=== PATIENT | female | born 1940 | race Caucasian/White ===

== ENCOUNTER 2019-11-01 15:03 | Emergency (ER) | payer OTHER ==
[2019-11-01 15:11] VITALS: BP 94/53; PULSE 53; TEMP 98; BMI 22.8
--- NOTE | 2019-11-01 15:30 | PDOC ---
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 Patient was getting LFTs when she had an episode of unresponsiveness and diaphoresis, was unconscious for 3 seconds before returning to baseline. Denies tongue biting, urinary/fecal incontinence, prodromal symptoms, no seizure history. Has known history of orthostatic hypotension, had a similar episode this morning, and has multiple other episodes in the last few weeks. At this time feels well and is asymptomatic. Area Supervisor Dr. Harrison aware, called ED to confirm history and would like discharge and follow-up in his office for medication tailoring. Electrical Appliance Repairer Dr. Austin present in ED, corroborated patient history and recall of episode in PFT lab. Patient denies chest pain, SOB, palpitations, abd pain, urinary sx, N/V/C/D. NIH Stroke Scale - Last Known Well Date/Time & Onset Date Last Known Well: 11/01/19 Time Last Known Well: 15:00 - Initial Evaluation Level of consciousness: Alert Ask patient the month and their age: Answers both correctly Ask patient to open & close eyes; make fist and let go: Obeys both correctly Best gaze (horizontal eye movement): Normal Visual field testing: No visual field loss Facial paresis (Show teeth/raise eyebrows/close eyes tight): Minor paralysis ( flattened nasolabial fold, asymmetry on smiling) (L-sided deficit limted to L mouth, but at bedside confirms this is consistent with her baseline Yanes 's palsy deficit) Motor Function: Left Arm: Normal Motor Function: Right Arm: Normal (extends arm 90 (or 45) degrees for 10 seconds without drift Motor Function: Left Leg: Normal (extends leg 30 degrees for 5 seconds without drift) Motor Function: Right Leg: Normal (extends leg 30 degrees for 5 seconds without drift) Limb Ataxia: No ataxia Sensory(Use pinprick test arms,legs,trunk,face/side to side): Normal Best language (Describe picture, name items, read sentences): No Aphasia Dysarthria (read several words): Normal articulation Extinction and Inattention: No abnormality - Total Score NIH Stroke Scale Score: 1 Past History - Past Medical History Allergies/Adverse Reactions: Allergies Allergy/AdvReac Type Severity Reaction Status Date / Time iodine Allergy Verified 11/01/19 15:11 shellfish derived Allergy Verified 11/01/19 15:11 Home Medications: Ambulatory Orders Amlodipine Besylate [Norvasc -] 5 mg PO DAILY 12/01/15 Levothyroxine [Synthroid -] 125 mcg PO DAILY 12/01/15 Losartan/Hydrochlorothiazide [Hyzaar 100-25 Tablet] 1 each PO DAILY 12/01/15 Oxycodone HCl/Acetaminophen [Percocet 5/325 -] 1 - 2 tab PO Q6H PRN #20 tab 03/13 levoFLOXacin [Levaquin -] 500 mg PO DAILY #7 tablet 12/01/15 Anemia: Yes Asthma: Yes Cardiac Disorders: Yes (AFIB) COPD: No HTN: Yes Seizures: Yes Thyroid Disease: Yes (HYPO) - Surgical History Appendectomy: Yes - Psycho Social/Smoking Cessation Hx Smoking History: Never smoked Have you smoked in the past 12 months: No Hx Alcohol Use: No Drug/Substance Use Hx: No Substance Use Type: None Review of Systems - Review of Systems Able to Perform ROS?: Yes Constitutional: Yes: Diaphoresis. No: Chills, Fever HEENTM: No: Symptoms Reported Respiratory: No: Cough, Orthopnea, Shortness of Breath, SOB with Exertion Cardiac (ROS): Yes: Lightheadedness, Syncope. No: Chest Pain, Palpitations ABD/GI: No: Symptoms Reported : No: Symptoms Reported Musculoskeletal: No: Symptoms Reported Integumentary: No: Symptoms Reported Neurological: No: Headache, Numbness, Paresthesia, Seizure, Weakness, Unsteady Gait, Ataxia Endocrine: No: Symptoms Reported Hematologic/Lymphatic: No: Symptoms Reported All Other Systems: Reviewed and Negative *Physical Exam - Vital Signs Last Vital Signs Temp Pulse Resp BP Pulse Ox 98 F 53 L 18 94/53 L 100 11/01/19 15:08 11/01/19 15:08 11/01/19 15:08 11/01/19 15:08 11/01/19 15:08 - Physical Exam General Appearance: Yes: Nourished, Appropriately Dressed, Thin. No: Apparent Distress HEENT: positive: EOMI, CHANG, Normal ENT Inspection, Normal Voice, Pharynx Normal , Hearing Grossly Normal. negative: Symmetrical, Scleral Icterus (R), Scleral Icterus (L), Pharyngeal Erythema, Tonsillar Exudate, Tonsillar Erythema, Nasal Congestion Neck: positive: Normal Thyroid. negative: Tender, Lymphadenopathy (R), Lymphadenopathy (L) Respiratory/Chest: positive: Lungs Clear, Normal Breath Sounds, Respiratory Distress. negative: Chest Tender, Accessory Muscle Use, Crackles, Rales, Rhonchi, Stridor, Wheezing Cardiovascular: positive: Regular Rhythm, Regular Rate. negative: Edema, Murmur Gastrointestinal/Abdominal: positive: Normal Bowel Sounds, Flat, Soft. negative : Tender, Guarding, Rebound Musculoskeletal: positive: Normal Inspection. negative: CVA Tenderness Extremity: positive: Normal Capillary Refill, Normal Inspection, Normal Range of Motion Integumentary: positive: Normal Color, Dry, Warm Neurologic: positive: Fully Oriented, Alert, Normal Mood/Affect, Normal Response , Motor Strength 5/5, Other (sensation intact to LT to all extremities, motor 5/ 5 all groups). 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 At this time patient appears well and is a/o x4, VS stable but mildly hypotensive to 90/53. Has known history of pAF, orthostatic hypotension with presentation consistent with frequent prior episodes. Area Supervisor Dr. Harrison is expecting patient and recommends discharge home once ED evaluation complete. Dr. Austin agrees, recommends labs be drawn before discharge. Ddx includes vagal syncope, VA, PE, seizure, arrhythmia, TIA. Patient exam is benign, no new neurological deficits, has baseline L mouth paralysis but otherwise remaining facial muscles intact, no sensory deficits. Mosts likely had a vagal syncopal episode while engaging abdominal muscles during PFTs. CBC CMP CP ECG CXR BGM TSH ECG shows NSR with HR 81, QRS 86, QTc 432, no ischemic changes or TWI. However, patient refuses to stay for further evaluation after labs drawn, refuses IV fluids for hypotension or to wait for labs to return to diagnose electrolyte abnormalities and trops despite the recommendation of enterostomal nurse/ physician/ophthalmologist. Says she will immediately go home with who is also a physician to see Dr. Harrison at his office. Patient has high medical literacy as a physician, understands risks of leaving AMA from ED, including cardiac disease such as VA/PE, electrolyte abnormalities causing arrhythmia, anemia or volume loss, neurological disease such as seizure/ TIA, and loss of current lifestyle or . Will be going directly to linen attendant who knows patient well and who is expecting her in the office today. Is not altered or intoxicated, has capacity to make this decision. Alternatives discussed, but patient remains steadfast in decision to leave. Explained importance of labs and fluids to alleviate hypotension, that patient was not a safe discharge and would potentially syncopize again. Patient verbalizes understanding and still wishes to leave. Patient understands that her intent to leave does not mean that we are unwilling to provide the care she needs, and that she is welcome to return to the ED at any time should she wish to do so. Patient signed AMA paperwork and will be leaving ED. Discharge - Discharge Information Problems reviewed: Yes Clinical Impression/Diagnosis: Hypotension Qualifiers: Hypotension type: orthostatic hypotension Qualified Code(s): I95.1 - Orthostatic hypotension Syncope Qualifiers: Syncope type: unspecified Qualified Code(s): R55 - Syncope and collapse Condition: Stable Disposition: AGAINST MEDICAL ADVICE - Admission No - Follow up/Referral Referrals: Melody Kim MD [Primary Care Provider] - - Patient Discharge Instructions - Post Discharge Activity
[2019-11-01] MEDS ORDERED: SODIUM CHLORIDE 0.9% 500 ML INFUS.BAG IV ONE (16:10)
--- NOTE | 2019-11-01 16:46 | PDOC ---
Attending Attestation - Resident Resident Name: Smith Elena - ED Attending Attestation I have performed the following: I have examined & evaluated the patient, The case was reviewed & discussed with the resident, I agree w/resident's findings & plan, Exceptions are as noted - HPI HPI: 11/01/19 16:39 79-year-old female with a history of paroxysmal atrial fibrillation, orthostatic hypotension, and asthma presents to the emergency department after a syncopal episode. Patient was in the hospital getting pulmonary function tests done and after 1 of the tests, she began to feel very sweaty. While in bed the patient was noted to stare off and become unresponsive for a few seconds. The patient quickly returned to her baseline and was not confused. She had no shaking movements, incontinence, tongue biting. The patient's blood pressure was reportedly very low and she was brought down to the emergency department for evaluation. On arrival here to the emergency department her blood pressure was 90s over 50s and her heart rate was 50. The patient reports her baseline blood pressure to be in the 130 systolic. She reports multiple similar episodes in the past where she gets lightheaded and diaphoretic with standing, but has never fully lost consciousness like she did today. She denies any preceding palpitations, chest pain, shortness of breath. At this time she is asymptomatic and feels well. She has no recent fevers, chills, headaches, dizziness, focal weakness or numbness, abdominal pain, nausea, vomiting, diarrhea, urinary symptoms or lower extremity edema. She denies any calf pain. She denies recent travel. - Physicial Exam PE: 11/01/19 16:43 GENERAL: Awake, alert, and fully oriented, in no acute distress. Very pleasant HEAD: No signs of trauma EYES: PERRLA, EOMI, sclera anicteric, conjunctiva clear ENT: Oropharynx clear without exudates. Moist mucosa NECK: Normal ROM, supple, no lymphadenopathy, JVD, or masses LUNGS: Breath sounds equal, clear to auscultation bilaterally. No wheezes, and no crackles HEART: Regular rate and rhythm, normal S1 and S2, no murmurs, rubs or gallops ABDOMEN: Soft, nontender, normoactive bowel sounds. No guarding, no rebound. No masses EXTREMITIES: Normal range of motion, no edema. No clubbing or cyanosis. No cords, erythema, or tenderness NEUROLOGICAL: Normal speech, +L sided facial droop, negative pronator drift, 5/ 5 strength in all 4 extremities, normal sensation to light touch in all 4 extremities, normal cerebellar exam, normal gait, normal reflexes and tone SKIN: Warm, Dry, normal turgor, no rashes or lesions noted. - Medical Decision Making 11/01/19 16:47 79yo F hx pAF, orthostatic hypotension, bells palsy presents to the ED for evaluation after syncopal episode while getting PFTs Vitals remarkable for hypotension and bradycardia on arrival, with improvement of HR to 70s and BP to 100/74s on our evaluation Exam unremarkable, pt is clinically well appearing Patient is followed closely by her group leader semiconductor processing Dr. Harrison and her supervisory cbp officer Dr. Austin. Per Dr. Harrison, patient has frequent episodes of presyncope, similar to the one she had today. He requests that we discharge her to his office for evaluation at this time, as she is well known to him. The patient would also like to be discharged to see Dr. Harrison at this time. Patient's blood work remains pending. We would like to make sure the patient's electrolytes, kidney function, troponin, and blood counts are within normal limits prior to discharge, in order to make sure we have treated any reversible causes of her syncopal episode today. The patient does not want to wait for the blood work as Dr. Harrison is awaiting them in the office. As such, we will sign the patient out AGAINST MEDICAL ADVICE. The patient was also evaluated in the emergency department by Dr. Austin, who agreed we should have lab results prior to discharge. The patient is clinically sober, free from distracting injury, appears to have intact insight and judgment and reason and in my opinion has the capacity to make decisions. The patient presents with syncope. I have explained that I am concerned that this may represent a cardiac arrhythmia, dehydration, anemia, a heart attack, she has verbalized an understanding of my concerns. I have discussed the need for lab results and observation to get more information about potential causes of the patients syncope. I have told the patient that if they leave and have another episode of syncope, they could get much worse, could become critically ill, and could possibly become disabled or . I have discussed these concerns with the patients who is at the bedside and he is unable to convince them to stay for further evaluation. The patient is not willing to await lab results or undergo observation. She is unwilling to stay overnight for monitoring. She is refusing any further care and is leaving against medical advice. I am unable to convince the patient to stay, I have asked her to return as soon as possible to complete her evaluation. I have spoken with Dr. Austin/Hunter. Pt will proceed at this time to Dr. Harrison' s office. I have answered all their questions. Heart Score/ECG Review #1 11/01/19 17:02 Twelve-lead EKG was performed and reviewed by me. Normal sinus rhythm, rate 81. Normal axis and intervals. No ST elevations or T wave inversions.
[2019-11-01 17:04] LABS: BASO % 0.3 % (0-2.0); EOS % 0.3 % (0-4.5); HEMATOCRIT 31.7 % (32.4-45.2); HEMOGLOBIN 10.2 GM/dL (10.7-15.3); LYMPH % 9.9 % (8-40); MCHC 32.1 g/dl (32.0-36.0); MEAN CELL VOLUME 61.9 fl (80-96); MEAN PLT VOLUME 9.6 fl (7.5-11.1); MONO % 6.5 % (3.8-10.2); PLATELET COUNT 232 K/MM3 (134-434); RBC 5.12 M/mm3 (3.60-5.2); RDW 16.1 % (11.6-15.6); WHITE BLOOD COUNT 13.6 K/mm3 (4.0-10.0)
[2019-11-01 17:07] LABS: MCH 19.9 pg (25.7-33.7)
[2019-11-01 17:34] LABS: ALBUMIN 3.5 g/dl (3.4-5.0); BILIRUBIN,TOTAL 0.5 mg/dL (0.2-1); BLOOD UREA NITROGEN 22.1 mg/dL (7-18); CALCIUM 8.4 mg/dL (8.5-10.1); CREATININE 0.9 mg/dL (0.55-1.3); POTASSIUM 3.6 mmol/L (3.5-5.1); TOT PROT 6.9 g/dl (6.4-8.2)
[2019-11-01 17:58] LABS: ANISOCYTOSIS 1+; PLATELET ESTIMATE ADEQUATE; TARGET CELLS FEW
--- NOTE | 2019-11-02 11:44 | EKG ---
Test Reason : Blood Pressure : / mmHG Vent. Rate : 081 BPM Atrial Rate : 081 BPM P-R Int : 166 ms QRS Dur : 086 ms QT Int : 372 ms P-R-T Axes : 045 071 038 degrees QTc Int : 432 ms NORMAL SINUS RHYTHM NONSPECIFIC ST ABNORMALITY ABNORMAL ECG WHEN COMPARED WITH ECG OF 26-AUG-2014 14:25, NO SIGNIFICANT CHANGE WAS FOUND Confirmed by KHOI BOOTH MD ([id number]) on 11/02/2019 11:43:49 AM Referred By: Confirmed By:KHOI BOOTH MD
== END 2019-11-01 17:07 | disposition left against medical advice (07) ==
LOC: JER 15:03
DX: I95.1 Orthostatic hypotension (principal); G51.0 Bell's palsy; J45.909 Unspecified asthma, uncomplicated; Z91.013 Allergy to seafood; Z91.048 Other nonmedicinal substance allergy status
CPT/HCPCS: 36415; 80053; 82550; 84443; 84484; 85025; 93005; 93010; 99282-25

== ENCOUNTER 2022-01-05 04:43 | Day surgery (SDC) | payer OTHER ==
[2022-01-01 15:20] VITALS: BMI 23.2
[2022-01-05 08:41] VITALS: TEMP 97.2
[2022-01-05 10:24] VITALS: BP 141/73; PULSE 63
== END 2022-01-05 10:00 | disposition home or self-care (01) ==
LOC: JASU-ENDO 04:43
PROVIDERS: ATTEND Internal Medicine
PROC: 5A2204Z Restoration of Cardiac Rhythm, Single (ICD-10-PCS; principal; 2022-01-05 08:30)
DX: I48.91 Unspecified atrial fibrillation (principal)
CPT/HCPCS: 92960; 93005; 93010